=== PATIENT | male | born 1995 | race African-American/Black ===

== ENCOUNTER 2017-10-07 00:49 | Emergency (ER) | payer OTHER | END 2017-10-07 01:30 | disposition home or self-care (01) | LOC: D.ER 00:49 | DX: J30.2 Other seasonal allergic rhinitis (principal) ==

== ENCOUNTER 2017-10-16 21:13 | Emergency (ER) | payer OTHER | END 2017-10-16 22:05 | disposition home or self-care (01) | LOC: D.ER 21:13 | DX: R06.02 Shortness of breath (principal) ==

== ENCOUNTER 2017-10-19 02:15 | Emergency (ER) | payer OTHER ==
[2017-10-19 03:41] LABS: BASOPHILS 0.5 % (0-2); EOSINOPHILS 5.6 % (0-7); HEMATOCRIT 44.3 % (42.0-54.0); HEMOGLOBIN 14.8 g/dL (13.5-17.5); IMMATURE GRANULOCYTES 0.3 % (0-5); LYMPHOCYTES 43.6 % (15-50); MCHC 33.4 g/dL (31.0-37.0); MCV 83.9 fL (80.0-100.0); MEAN PLATELET VOLUME 10.2 fL (7.4-10.4); MONOCYTES 6.4 % (2-11); NEUTROPHILS 43.6 % (40-80); PLATELET COUNT 263 10x3/uL (130-400); RBC 5.28 10x6/uL (4.20-6.10); WBC 7.3 10x3/uL (4.8-10.8)
[2017-10-19 04:03] LABS: ALBUMIN 3.7 g/dL (3.4-5.0); ANION GAP 13.9 mmol/L (8-16); BILIRUBIN - TOTAL 0.19 mg/dL (0.2-1.3); CALCIUM 8.8 mg/dL (8.5-10.1); CREATININE - SERUM 1.5 mg/dL (0.6-1.3); POTASSIUM - SERUM 3.9 mmol/L (3.5-5.1); PROTEIN - SERUM 7.7 g/dL (6.4-8.2)
[2017-10-20 10:18] LABS: HEPATITIS C ANTIBODY <0.1 (0.0-0.9)
== END 2017-10-19 05:12 | disposition home or self-care (01) ==
LOC: D.ER 02:15
PROVIDERS: Family Medicine
DX: K75.9 Inflammatory liver disease, unspecified (principal); R06.6 Hiccough

== ENCOUNTER 2017-10-25 16:09 | Emergency (ER) | payer OTHER | END 2017-10-25 18:45 | disposition home or self-care (01) | LOC: D.ER 16:09 | DX: R06.09 Other forms of dyspnea (principal) ==

== ENCOUNTER 2017-12-24 19:47 | Emergency (ER) | payer OTHER ==
[~2017-12-24] VITALS: Ht 190.5 cm; Wt 103.7 kg
[2017-12-24 19:53] VITALS: Ht 190.5 cm; Wt 103.7 kg
[2017-12-24] MEDS ORDERED: MEDROL DOSE PACK4 MG PO (20:36)
[2017-12-24 20:46] VITALS: BP 139/72
== END 2017-12-24 20:47 | disposition home or self-care (01) ==
LOC: D.ER 19:47
DX: L25.9 Unspecified contact dermatitis, unspecified cause (principal)

== ENCOUNTER 2017-12-26 07:32 | Emergency (ER) | payer OTHER ==
[~2017-12-26] VITALS: Ht 190.5 cm; Wt 102.3 kg
[~2017-12-26 07:32] MED LIST: MEDROL DOSE PACK4 MG PO
[2017-12-26 07:38] VITALS: Ht 190.5 cm; Wt 102.3 kg
[2017-12-26] MEDS ORDERED: DIFLUCAN150 MG PO (08:09)
[2017-12-26 08:21] VITALS: BP 130/86
== END 2017-12-26 08:22 | disposition home or self-care (01) ==
LOC: D.ER 07:32
DX: L25.9 Unspecified contact dermatitis, unspecified cause (principal); B35.6 Tinea cruris; R10.9 Unspecified abdominal pain; R07.9 Chest pain, unspecified

== ENCOUNTER 2018-02-17 03:29 | Emergency (ER) | payer OTHER ==
[~2018-02-17] VITALS: Ht 190.5 cm; Wt 104.5 kg
[~2018-02-17 03:29] MED LIST changes: +DIFLUCAN150 MG PO
[2018-02-17 03:37] VITALS: Ht 190.5 cm; Wt 104.5 kg
[2018-02-17] MEDS ORDERED: ZOVIRAX200 MG PO (03:52)
[2018-02-17 04:21] VITALS: BP 129/74
== END 2018-02-17 04:21 | disposition home or self-care (01) ==
LOC: D.ER 03:29
DX: A64 Unspecified sexually transmitted disease (principal)

== ENCOUNTER 2018-08-27 21:50 | Emergency (ER) | payer OTHER ==
[~2018-08-27] VITALS: Ht 190.5 cm; Wt 111.4 kg
[~2018-08-27 21:50] MED LIST changes: +ZOVIRAX200 MG PO
[2018-08-27 21:57] VITALS: Ht 190.5 cm; Wt 111.4 kg
[2018-08-27] MEDS ORDERED: GUAIFENESI100 MG/5 M PO (23:32)
[2018-08-27] MEDS ORDERED: VIBRAMYCIN 100100 MG PO (23:32)
[2018-08-28 00:03] VITALS: BP 128/81
== END 2018-08-28 00:03 | disposition home or self-care (01) ==
LOC: D.ER 21:50
DX: J01.90 Acute sinusitis, unspecified (principal); J40 Bronchitis, not specified as acute or chronic

== ENCOUNTER 2019-03-01 23:39 | Emergency (ER) | payer SELFPAY ==
[~2019-03-01] VITALS: Ht 190.5 cm; Wt 109.1 kg
[~2019-03-01 23:39] MED LIST changes: +GUAIFENESI100 MG/5 M PO; +VIBRAMYCIN 100100 MG PO
[2019-03-01 23:48] VITALS: Ht 190.5 cm; Wt 109.1 kg
[2019-03-02 00:51] VITALS: BP 129/77
== END 2019-03-02 00:51 | disposition home or self-care (01) ==
LOC: D.ER 23:39
DX: J02.9 Acute pharyngitis, unspecified (principal)

== ENCOUNTER 2019-07-15 08:40 | Emergency (ER) | payer SELFPAY ==
[~2019-07-15] VITALS: Ht 190.5 cm; Wt 105.5 kg
[2019-07-15 08:43] VITALS: Ht 190.5 cm; Wt 105.5 kg
[2019-07-15 08:54] LABS: APPEARANCE CLOUDY (CLEAR); BILIRUBIN NEGATIVE (NEGATIVE); COLOR YELLOW (YELLOW); GLUCOSE NEGATIVE (NEGATIVE); KETONE NEGATIVE (NEGATIVE); NITRITE NEGATIVE (NEGATIVE); PROTEIN TRACE mg/dL (NEGATIVE); UROBILINOGEN NORMAL (NORMAL)
[2019-07-15 08:58] LABS: EPITHELIAL CELLS 0-5 /hpf (0-5)
[2019-07-15 08:59] LABS: BACTERIA FEW /hpf (NEGATIVE)
[2019-07-15 09:38] VITALS: BP 128/72
== END 2019-07-15 09:40 | disposition home or self-care (01) ==
LOC: D.ER 08:40
PROVIDERS: Family Medicine
DX: A64 Unspecified sexually transmitted disease (principal)

== ENCOUNTER 2019-09-12 09:33 | Emergency (ER) | payer SELFPAY ==
[~2019-09-12] VITALS: Ht 190.5 cm; Wt 108.2 kg
[2019-09-12 09:53] VITALS: Ht 190.5 cm; Wt 108.2 kg
[2019-09-12 10:39] VITALS: BP 133/66
== END 2019-09-12 10:42 | disposition home or self-care (01) ==
LOC: D.ER 09:33
DX: J11.1 Influenza due to unidentified influenza virus with other respiratory manifestations (principal)

== ENCOUNTER 2020-03-31 02:47 | Emergency (ER) | payer MEDICAID ==
[~2020-03-31] VITALS: Ht 190.5 cm; Wt 118.2 kg
[2020-03-31 02:58] VITALS: BP 111/58; Ht 190.5 cm; Wt 118.2 kg
== END 2020-03-31 03:52 | disposition home or self-care (01) ==
LOC: D.ER 02:47
DX: S60.444A External constriction of right ring finger, initial encounter (principal); X58.XXXA Exposure to other specified factors, initial encounter